=== PATIENT | female | born 1975 | race African-American/Black ===

== ENCOUNTER 2018-10-22 10:50 | Emergency (ER) | payer OTHER ==
[~2018-10-22] VITALS: Ht 165.1 cm; Wt 72.6 kg
--- OUTSIDE RECORDS SUMMARY | 2018-10-22 10:53 | XMS REPORT | Summary of Care ---
Author Author IRWIN DIEGO M.D. Organization Unknown Address [facility] Phone Unavailable Care Team Providers Care [employer] Name Role Phone IRWIN DIEGO M.D. Unavailable Unavailable DAYTON RANGEL M.D. Unavailable Unavailable DUC VILCHIS MD, BALDOMERO HANSON Unavailable Unavailable Unavailable Unavailable Functional Status Name Dates Details Functional status health issues are not documented Status: Name Dates Details Cognitive status health issues are not documented Status: Problems Name Dates Details Strain of left knee, initial encounter (844.9, S86.912A) Status: Active Strain of left wrist, initial encounter (842.00, S66.912A) Status: Active Gestational diabetes mellitus (GDM), antepartum, gestational diabetes method of control unspecified (648.83, O24.419) Status: Active Diabetic nutritional counseling completed (V65.3, Z71.3) Status: Active Gestational diabetes mellitus (GDM) in third trimester controlled on oral hypoglycemic drug (648.80, O24.415) Status: Active De Quervain's tenosynovitis (727.04, M65.4) Status: Active Medications Name Dates Details Multivitamin + DHA 28-0.8 & 200 MG Oral * Start : 16-Apr-2017 Active Iron 240 (27 Fe) MG Oral Tablet * Refills: 0 * Start : 16-Apr-2017 Active MetFORMIN HCl - 500 MG Oral Tablet TAKE 1 TABLET BY MOUTH TWICE DAILY WITH THE MORNING AND EVENING MEAL * Quantity: 180 Refills: 1 DAYTON RANGEL M.D. * Start : 12-May-2017 Active MethylPREDNISolone 4 MG Oral Tablet Therapy Pack USE DIRECTED * Quantity: 1 Refills: 0 IRWIN DIEGO M.D. * Start : 16-Jul-2017 Active 21 Tablet Pack Meloxicam 7.5 MG Oral Tablet TAKE 1 TABLET DAILY NEEDED. * Quantity: 30 Refills: 2 IRWIN DIEGO M.D. * Start : 16-Jul-2017 Active Allergies and Adverse Reactions Name Dates Details No Known Drug Allergies (Allergy) Status: Active Procedures Procedure Dates Details Procedures not documented Immunization Name Dates Details Immunizations not documented Family History Name Dates Details Family history of hypertension (V17.49, Z82.49) Status: Active Name Dates Details Family history of diabetes mellitus (V18.0, Z83.3) Status: Active Family history of hypertension (V17.49, Z82.49) Status: Active Name Dates Details Family history of diabetes mellitus (V18.0, Z83.3) Status: Active Family history of hypertension (V17.49, Z82.49) Status: Active Social History Name Dates Details - Status: Name Dates Details Never smoker Vital Signs Date Test Result Details [id number] Height 61 in Status: Weight 216.5 lb Status: Body Mass Index Calculated 40.91 kg/m2 Status: Body Surface Area Calculated 1.95 m2 Status: Results Date Description Value Details Results not documented Plan of Care Name Dates Details Planned Observations Planned Goals not documented Planned Encounters Appointment; IRWIN DIEGO M.D. On: 09-Aug-2018 8:45 Interventions Provided Plan* Completed at Today's Appointment: * Injection * Under sterile conditions 1 cc of 40 mg Kenalog 1 cc of bupivacaine were injected into the right second dorsal compartment. * At this time we will have the patient injected again with steroid to the right wrist. This will be an injection into the second dorsal compartment. We will have her follow-up in clinic in an as-needed basis. Should the symptoms return will consider surgical intervention. 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 Encounter Diagnosis: Problem not documented On: 04-May-2017 14:30 Appointment; [address]|[place] Encounter Diagnosis: Problem not documented On: 04-May-2017 15:00 Appointment; OB/RES, [place] Encounter Diagnosis: Problem not documented On: 11-May-2017 10:00 Appointment; JACLY[address]|[place] Encounter Diagnosis: Problem not documented On: 11-May-2017 11:30 Appointment; JACLY[address]|[place] Encounter Diagnosis: Problem not documented On: 18-May-2017 14:00 Appointment; OB/RES, [place] Encounter Diagnosis: Problem not documented On: 01-Jun-2017 10:45 Appointment; CANDICE REEVES M.D. 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 Encounter Diagnosis: Problem not documented On: 16-Jul-2017 9:15 Appointment; IRWIN DIEGO M.D. Encounter Diagnosis: Problem not documented On: 14-Aug-2017 9:30 Appointment; IRWIN DIEGO M.D. Encounter Diagnosis: Problem not documented On: 09-Oct-2017 10:00 Appointment; IRWIN DIEGO M.D. Encounter Diagnosis: Problem not documented On: 12-Jul-2018 9:15"
[2018-10-22 12:34] VITALS: BP 128/88
== END 2018-10-22 12:37 | disposition home or self-care (01) ==
LOC: ER 10:50
DX: A60.04 Herpesviral vulvovaginitis (principal); F17.210 Nicotine dependence, cigarettes, uncomplicated
CPT/HCPCS: 99282

== ENCOUNTER 2019-01-02 12:43 | Emergency (ER) | payer OTHER ==
[~2019-01-02] VITALS: Ht 165.1 cm; Wt 90.7 kg
--- OUTSIDE RECORDS SUMMARY | 2019-01-02 12:45 | XMS REPORT | Continuity of Care Document ---
Author Author [facility] Interface Address Unknown Phone Unavailable Problems Problem Status Onset Date Classification Date Reported Comments Source Medications Medication Details Route Status Patient Instructions Ordering Provider Order Date Source Allergies, Adverse Reactions, Alerts Substance Category Reaction Severity Reaction type Status Date Reported Comments Source Immunizations Immunization Date Given Site Status Last Updated Comments Source Results Order Name Results Value Reference Range Date Interpretation Comments Source Vital Signs Vital Sign Value Date Comments Source Encounters Location Location Details Encounter Type Encounter Number Reason For Visit Attending Provider ADM Date DC Date Status Source Departed Emergency Room [id number] CAMRYN SMITH MD 10/22/2018 10/22/2018 [facility] Procedures Procedure Code Date Perfomer Comments Source
[2019-01-02] MEDS ORDERED: TRAMADOL HCL 50 MG TAB PO ONE (13:30)
[2019-01-02] MEDS ORDERED: ACETAMINOPHEN/CODEINE 300MG - 30MG TAB PO ONE (13:30)
[2019-01-02] MEDS ORDERED: ONDANSETRON HCL 4 MG ORAL DISINTEGRATING TAB ONE (13:41)
--- NOTE | 2019-01-02 14:22 | Diagnostic Imaging Report ---
EXAM: XR CHEST 2 VIEWS DATE: 01/02/2019 1:54 PM INDICATION: Fall COMPARISON: None FINDINGS: Lines and Tubes: None Heart and Mediastinum: No acute cardiomediastinal findings. Lungs and Pleura: No significant pleural effusion, pneumothorax, or focal consolidation. Bones and Soft Tissues: No acute findings. IMPRESSION: 1. No acute cardiopulmonary findings. Signed by: Dr. Dawit Suresh MD on 01/02/2019 2:19 PM
[2019-01-02] MEDS ORDERED: ONDANSETRON HCL 4 MG ORAL DISINTEGRATING TAB PO ONE (14:30)
--- NOTE | 2019-01-02 14:33 | Diagnostic Imaging Report ---
EXAM: KNEE RIGHT THREE VIEWS DATE: 01/02/2019 12:53 PM INDICATION: Fall COMPARISON: None FINDINGS: No fracture or subluxation. No significant degenerative change or joint effusion. IMPRESSION: No acute findings. Signed by: Dr. Dawit Suresh MD on 01/02/2019 2:29 PM
--- NOTE | 2019-01-02 14:34 | Diagnostic Imaging Report ---
EXAM: HAND LEFT 2 VIEWS DATE: 01/02/2019 12:53 PM INDICATION: Fall COMPARISON: None FINDINGS: Jewelry base of ring finger limits evaluation. Carpus inadequately evaluated. No distinct acute fracture identified in the hand. IMPRESSION: No definite acute finding in the hand. Signed by: Dr. Dawit Suresh MD on 01/02/2019 2:30 PM
--- NOTE | 2019-01-02 14:58 | NUR ---
PT C/O SOB AND CHEST PAIN STARTED WHILE IN RADIOLOGY. PT THINKS THIS IS ANXIETY. PT BACK IN TRIAGE TO GET EKG AND RE-EVAL BY [employer].
[2019-01-02 15:52] VITALS: BP 124/75
== END 2019-01-02 15:49 | disposition home or self-care (01) ==
LOC: ER 12:43
DX: S60.222A Contusion of left hand, initial encounter (principal); S60.022A Contusion of left index finger without damage to nail, initial encounter; S60.032A Contusion of left middle finger without damage to nail, initial encounter; S60.042A Contusion of left ring finger without damage to nail, initial encounter; S80.02XA Contusion of left knee, initial encounter; W01.0XXA Fall on same level from slipping, tripping and stumbling without subsequent striking against object, initial encounter; Y93.51 Activity, roller skating (inline) and skateboarding; Y92.331 Roller skating rink as the place of occurrence of the external cause; F41.9 Anxiety disorder, unspecified; F32.9 Major depressive disorder, single episode, unspecified
CPT/HCPCS: 29125; 71046; 73120; 73562; 93005; 99284; Q0162